=== PATIENT | male | born 1985 | race Caucasian/White ===

== ENCOUNTER 2023-07-19 00:50 | Emergency (ER) | payer OTHER, SELFPAY ==
[2023-07-19 01:07] VITALS: BP 130/92
[2023-07-19 02:04] VITALS: BP 114/80
[2023-07-19 02:05] VITALS: BMI 25.2
[2023-07-19 03:00] VITALS: BP 141/89
[2023-07-19] MEDS: TORADOL 60 MG IM (03:05)
--- NOTE | 2023-07-19 03:14 | ED.GENMED ---
History of Present Illness
General
Chief Complaint: Oral/Mouth Problem
Source: patient and spouse
Exam Limitations: none
Time Seen by Provider: 07/19/23 02:28
Nursing documentation reviewed up to this point in time: agreed with
Travel History
Have you had any contact with someone who has COVID-19?: No
Do you have any symptoms of coronavirus? Fever > 100 degrees, chills, cough, shortness of breath, sore throat, loss of taste or smell, muscle aches, or headache?: No
History of Present Illness
History of Present Illness:
This is a 37-year-old gentleman who has been following with dentist recently and underwent root canal left inferior molar on July 11. He continued with significant pain and local swelling and upon follow-up July 13 was started on Augmentin,
metronidazole and Vicodin for pain. He does admit that submandibular adenopathy and local swelling have improved and he initially had mild improvement in local left mandibular pain but over the past day or 2 pain has worsened.
He has been taking ibuprofen sporadically with last dose this afternoon. His last dose of Vicodin was 11 PM.
He denies fevers or chills, denies sore throat, no difficulty swallowing. He denies headache nor ear pain.
He states he called the dentist and was recommended to come to the ED for further evaluation.
Past History
Past History
ED Past Medical History: None
ED Past Surgical History: None
Social History
Tobacco: Non-smoker
Alcohol: Occasional
Personal:
Living: with family
Employment: Employed
Family History
Family History: Other (Noncontributory)
Phy Exam
Physical Exam
Physical Exam:
GENERAL: 37-year-old gentleman appears his stated age, awake and alert, appears in mild distress related to pain. Easily communicative. is accompanying.
EYE: anicteric
NECK: Supple, nontender, no meningismus, no significant adenopathy.
ENT: There is no facial soft tissue swelling, no facial erythema. No submandibular adenopathy. Left lower molar, tooth #20 has mild gingival fullness along the buccal aspect with scant whitish discoloration/pointing at superior edge of the
gingiva. This area is moderately tender to palpation and without fluctuance. There is no sublingual nor medial gingival edema nor erythema. Tongue is midline and without edema. Posterior pharynx is clear, oral mucosa is moist. TM clear b/l,
nares patent.
CARDIAC: Regular rate and rhythm. no murmur.
LUNGS: Clear breath sounds bilaterally, no acute respiratory distress, no wheezes/rales/rhonchi
ABDOMEN: Soft, nondistended, without focal tenderness
NEUROLOGICAL: Alert and oriented x3, no focal neuro deficits. Gait is deutsch and steady.
SKIN: Warm and dry, normal color, skin intact. No rash.
MUSCULOSKELETAL: No C/C/E. peripheral pulses are full and equal b/l. No palpable tenderness.
PSYCH: Normal and appropriate interaction.
Course
Orders/Labs/Results
Orders:
Orders
07/19/23 02:39
Ketorolac [Toradol] 60 mg IM NOW STA
07/19/23 02:47
Bupivacaine HCl/Epinephrine [Marcaine 0.5% W/Epi [facility] [place]] 1 cartridge INJ OR ONE
Vital Signs
Initial and Last Documented VS:
Initial Vital Signs
Temp Pulse Resp BP Pulse Ox
97.8 F 77 22 130/92 97
07/19/23 01:07 07/19/23 01:07 07/19/23 01:07 07/19/23 01:07 07/19/23 01:07
Last Documented Vital Signs
Temp Pulse Resp BP Pulse Ox
97.8 F 66 16 124/83 98
07/19/23 01:07 07/19/23 02:07 07/19/23 02:07 07/19/23 04:00 07/19/23 04:00
Procedures
Dentalgia
Dental Block: Infiltration (Local infiltration inferior aspect of tooth #20)
Bupivacaine 0.5%/Epi Dental cartridge administered?: Yes
Tooth Number: 20
Abcess drained?: No
Pt tolerated procedure well w/ no immediate adverse effects?: Yes
MDM/Problems Addressed
Differential Diagnosis Includes:
Patient presents with focal dentalgia tooth #20 with focal gingival fullness and mild erythema along the buccal aspect of this tooth that is moderately locally tender to palpation.
There is no surrounding adenopathy nor soft tissue swelling nor erythema. No evidence of cellulitis nor deeper infection.
Vital signs are reassuring, he does not report a fever.
He does note that adenopathy has resolved and thus at this point it does not appear that he has failed outpatient antibiotics.
I suspect his main concern is dental pain.
Will give an IM dose of Toradol, topical lidocaine gel and will consider local dental block with bupivacaine.
*Pulse Oximetry
Patient hypoxic: no
*Critical Care Note
Total Time (30-74mins, 75-104mins- exclusive of procedures): Not Applicable
Update Note
Update Note:
07/19/2023 0414 AM
Patient feeling markedly improved after IM dose of Toradol, resting comfortably.
He continues with moderate local tenderness left mandible region at tooth #20.
Local dental block with bupivacaine injected along the buccal surface inferior to tooth #20. Patient tolerated procedure well. Marked improvement in pain.
Recommend he continue Vicodin for as needed pain and will add prescription strength ibuprofen as well.
Finish antibiotic and recommend prompt follow-up with dentist. plans to call the dental practice today.
ED Attending Note
-
Portions of this chart may have been created with voice recognition software.� Occasional wrong word or��sound alike� substitutions may have occurred due to the inherent limitations of voice recognition software.
Discharge Plan
Departure
Patient Disposition: Home (Routine Discharge)
Date of Disposition: 07/19/23
Time of Disposition: 04:12
Patient with high blood pressure during this ER visit?: No
Condition: Good
Discharge Problem:
Dentalgia
Instructions: Dental Pain (DC)
Prescriptions:
New
ibuprofen 800 mg tablet
800 mg PO QIDPRN PRN (Reason: pain, fever) Qty: 30 0RF
Referrals:
NONE,* [Family Provider] -
Activity Restrictions/Additional Instructions:
Finish antibiotic.
Call your dentist today for follow-up appointment today or tomorrow for recheck.
Interventions
Interventions:
*Risk Screen - Suicide Last Done: 07/19/23 02:05
*General Assessment Last Done: 07/19/23 02:05
*Neglect/Abuse Screening Last Done: 07/19/23 02:00
ED- Fall Risk Assessment Last Done: 07/19/23 02:05
*ED COVID-19 Vaccine History Last Done: 07/19/23 02:05
*Nursing Disposition Last Done: 07/19/23 04:20
Discharge Date and Time
Discharge Date/Time: 07/19/23 04:21
[2023-07-19 04:00] VITALS: BP 124/83
== END 2023-07-19 04:21 | disposition home or self-care (01) ==
LOC: EMR 00:50
PROVIDERS: EMERGENCY PHYSICIAN Emergency Medicine
DX: K08.89 Other specified disorders of teeth and supporting structures (principal)
CPT/HCPCS: 99284; 64400; 96372